=== PATIENT | male | born 1980 | race Caucasian/White ===

== ENCOUNTER 2023-11-16 08:55 | Emergency (ER) | payer OTHER ==
[~2023-11-16] VITALS: Ht 180.3 cm; Wt 56.8 kg
[2023-11-16 09:26] LABS: BASOPHILS # (AUTO) 0.1 X10'3 (0-0.2); EOSINOPHILS # (AUTO) 0.1 X10'3 (0-0.9); EOSINOPHILS % (AUTO) 1.5 % (0-6); HEMOGLOBIN 14.8 g/dl (14.0-17.9); LYMPHOCYTES # (AUTO) 2.8 X10'3 (1.1-4.8); LYMPHOCYTES % (AUTO) 32.7 % (21-51); MEAN CORPUSCULAR HEMOGLOBIN 29.9 PG (27.0-31.0); MEAN CORPUSCULAR HGB CONC 33.6 g/dL (33.0-36.5); MEAN PLATELET VOLUME 10.7 FL (7.4-10.4); MONOCYTES # (AUTO) 0.7 X10'3 (0-0.9); MONOCYTES % (AUTO) 7.8 % (2-12); NEUTROPHILS # (AUTO) 4.9 X10'3 (1.8-7.7); PLATELET COUNT 186 X10'3 (140-440); RED BLOOD COUNT 4.94 X10'6 (4.70-6.10); RED CELL DISTRIBUTION WIDTH 13.3 % (11.5-14.5); WHITE BLOOD COUNT 8.7 X10'3 (4.5-11.0)
[2023-11-16] MEDS: normal saline 1000ml 1,000 ML IV ONE (09:34)
[2023-11-16 09:43] LABS: ALBUMIN 3.1 G/DL (3.4-5.0); ANION GAP 14 (8-16); BLOOD UREA NITROGEN 46 MG/DL (7-18); BUN/CREATININE RATIO 13.1 (10.0-20.0); CALCIUM 8.3 MG/DL (8.5-10.1); CHLORIDE 98 MMOL/L (99-107); CREATININE 3.52 MG/DL (0.60-1.10); GLUCOSE 237 MG/DL (70-104); POTASSIUM 4.2 MMOL/L (3.5-5.1); PRO BRAIN NATRIURETIC PEPTIDE 5306 PG/ML (0-125); SODIUM 132 MMOL/L (135-145); TOTAL CARBON DIOXIDE 19.9 MMOL/L (24-32); eCRCL 21 ML/MIN; eGFR 19 ML/MIN
[2023-11-16] MEDS: gabapentin 300mg capsule PO SCH (11:24)
[2023-11-16] MEDS: gabapentin 300mg capsule PO ONE (11:29)
[2023-11-16 13:28] LABS: BILIRUBIN,URINE MODERATE (Neg); CLARITY,URINE SLIGHTLY CLOUDY (Clear); COLOR,URINE YELLOW (Yellow); GLUCOSE, URINE 100 mg/dl (Neg); KETONES,URINE TRACE mg/dl (Neg); LEUKOCYTE ESTERASE ,URINE NEGATIVE (Neg); NITRITES, URINE NEGATIVE (Neg); OCCULT BLOOD,URINE NEGATIVE (Neg); PH,URINE 5.5 (4.8-8.0); PROTEIN,URINE 30 mg/dl (Neg); UROBILINOGEN,URINE 0.2 E.U/dL (0.2-1.0)
[2023-11-16 13:32] LABS: UA COLLECTION TYPE VOIDED
[2023-11-16 13:33] LABS: CAL OXALATE CRYSTALS 4+ /HPF (NEGATIVE)
[2023-11-16 13:35] LABS: SQUAMOUS EPITHELIAL CELL,UR FEW /LPF (FEW)
[2023-11-16 13:36] LABS: TRANSITIONAL EPI CELLS,URINE FEW /HPF
[2023-11-16 13:37] LABS: AMORPHOUS URATES 2+; BACTERIA,URINE 1+ /HPF (Neg)
[2023-11-16 13:43] LABS: URINE AMPHETAMINE SCREEN NEGATIVE (Neg); URINE BARBITUATE SCREEN NEGATIVE (Neg); URINE BENZODIAZEPINES SCREEN NEGATIVE (Neg); URINE CANNABINOID SCREEN NEGATIVE (Neg); URINE COCAINE SCREEN NEGATIVE (Neg); URINE METHADONE SCREEN NEGATIVE (Neg); URINE OPIATE SCREEN NEGATIVE (Neg); URINE PHENCYCLIDINE SCREEN NEGATIVE (Neg)
[2023-11-16] MEDS: cephalexin 250mg capsule PO ONE (14:03)
[2023-11-16 14:34] VITALS: BP 109/78; PULSE 93; RESP 18; TEMP 97.7; O2SAT 97
== END 2023-11-16 14:38 | disposition home or self-care (01) ==
LOC: ER 08:56
DX: I47.19 Other supraventricular tachycardia (principal)
CPT/HCPCS: 36415; 71045; 80048; 80305; 81001; 82948; 83880; 84484; 85025; 87088; 93005; 96360; 99285; J7030

== ENCOUNTER 2023-11-28 09:16 | Outpatient (CLI) | payer OTHER | END 2023-11-28 23:59 | disposition home or self-care (01) | LOC: RAD 09:16 | PROVIDERS: ATTEND Chiropractor | DX: M17.12 Unilateral primary osteoarthritis, left knee (principal); M79.89 Other specified soft tissue disorders; M25.561 Pain in right knee; M25.562 Pain in left knee | CPT/HCPCS: 73564 ==

== ENCOUNTER 2023-12-20 09:54 | Day surgery (SDC) | payer OTHER ==
[~2023-12-20] VITALS: Ht 180.3 cm; Wt 59.6 kg
[2023-12-20] VITALS (11 sets, daily range): BP systolic 102–172; BP diastolic 63–106; PULSE 80–122; RESP 9–26; TEMP 98.4; O2SAT 96–100
--- NOTE | 2023-12-20 10:10 | NUR ---
Dr. Tita Weston notified that pt is c/o 07/26 chest pain- EKG sent to . repeat EKG done per Dr. Weston, repeat EKG sent to Dr. Weston per EKG is okay. Redd Shoemaker [employer] PROGRAM MANAGER in to see pt and evaluated him and reviewed EKG's. no orders received, will continue to monitor.
[2023-12-20] MEDS ORDERED: fentaNYL/PF 50MCG/1 ML 2ML syringe IV ONE (10:25)
[2023-12-20] MEDS ORDERED: normal saline 1000ml 1,000 ML IV SCH (10:25)
[2023-12-20] MEDS ORDERED: MIDAZolam 1mg/ml 10ml vial IV ONE (10:25)
[2023-12-20] MEDS ORDERED: ERGO50002 PO (10:44)
[2023-12-20] MEDS ORDERED: METO50TA17 PO (10:44)
[2023-12-20] MEDS ORDERED: LANTUS SQ (10:44)
[2023-12-20] MEDS ORDERED: GABA300T25 (10:44)
[2023-12-20] MEDS ORDERED: calcium 600 mg (10:44)
== END 2023-12-20 15:05 | disposition home or self-care (01) ==
LOC: SSTAY O 09:54
PROVIDERS: ATTEND Internal Medicine Interventional Cardiology
DX: D15.1 Benign neoplasm of heart (principal); I10 Essential (primary) hypertension; E11.9 Type 2 diabetes mellitus without complications; E78.00 Pure hypercholesterolemia, unspecified; Z79.4 Long term (current) use of insulin; Z79.899 Other long term (current) drug therapy
CPT/HCPCS: 82948; 93005; 93308; 93312; 94760; J7030